=== PATIENT | female | born 1960 | race Caucasian/White ===

== ENCOUNTER 2018-08-26 00:10 | Inpatient (IN) | payer OTHER ==
[2018-08-25 15:05] LABS: INR 1.02
[2018-08-26] VITALS (18 sets, daily range): BP systolic 90–122; BP diastolic 56–82
[~2018-08-26] VITALS: Ht 154.9 cm; Wt 62.6 kg
[~2018-08-26 00:10] MED LIST: CYCL1DRO6 OP; FISH1CAP15 PO; HYDR12.556 PO; IBUP-1671 PO; PARO-243 PO; SIMV-49 PO; TELM1TAB19 PO; TRAM-420 PO
[2018-08-26] MEDS ORDERED: PROPOFOL EMUL(*) 10MG/ML 20 ML 20 ML ONE (07:22)
[2018-08-26] MEDS ORDERED: DEXAMETHASONE SOD 4 MG/ML VIAL ONE (07:22)
[2018-08-26] MEDS ORDERED: ONDANSETRON 4 MG/2 ML VIAL ONE (07:22)
[2018-08-26] MEDS ORDERED: METOCLOPRAMIDE 10 MG/2 ML SDV ONE (07:22)
[2018-08-26] MEDS ORDERED: LIDOCAINE MPF 1% 5 ML VIAL ONE (07:22)
[2018-08-26] MEDS ORDERED: fentaNYL CITR 100 MCG/2 ML AMP ONE ×3 (07:40→13:50)
[2018-08-26] MEDS ORDERED: ROPIVACAINE/EPI/CLONIDINE/KET 50 ML SYRINGE INJ ONE (07:45)
[2018-08-26] MEDS ORDERED: LIDOCAINE/SOD BICARB 8.4% SYR ID ONE (07:45)
[2018-08-26] MEDS ORDERED: TRANEXAMIC AC 1000 MG/10ML SDV 1,000 MG in DEXTROSE 5% 50 ML BAG 50 ML IV ONE (07:45)
[2018-08-26] MEDS ORDERED: CELECOXIB 200 MG CAP PO ONE (07:45)
[2018-08-26] MEDS ORDERED: NORMOSOL R SOLN(*) 1000 ML BAG 1,000 ML IV PRN (07:45)
[2018-08-26] MEDS ORDERED: ceFAZolin(*) 2GM/D5W 50ML 50 ML IVPB ONE (07:45)
[2018-08-26] MEDS ORDERED: MIDAZOLAM 2 MG/2 ML VIAL IVP PRN (07:45)
[2018-08-26] MEDS ORDERED: ACETAMINOPHEN 500 MG TAB PO ONE (07:45)
[2018-08-26] MEDS ORDERED: BACITRACIN 50000 UNIT/VIAL 100,000 UNIT in NS 0.9% 3000 ML IRRIGATION BAG 3,000 ML IR ONE (07:45)
[2018-08-26] MEDS ORDERED: PREGABALIN 150 MG CAPSULE PO ONE (07:45)
[2018-08-26] MEDS ORDERED: FAMOTIDINE 20 MG TAB PO ONE (07:45)
[2018-08-26] MEDS ORDERED: NS(*) 0.9% 250 ML BAG 250 ML ONE ×2 (10:59→18:34)
[2018-08-26] MEDS ORDERED: ePHEDrine 25 MG/5 ML DISP.SYR IVP ONE (11:15)
[2018-08-26] MEDS ORDERED: PHENYLEPHRINE 10 MG/1 ML VIAL ONE (12:09)
--- NOTE | 2018-08-26 13:49 | RADIOLOGY IMAGING REPORT ---
FACILITY: [facility] PATIENT NAME: Amirah Lopes : 1960 MR: [id number] V: [id number] EXAM DATE: ORDERING PHYSICIAN: DERRICK DANIELS TECHNOLOGIST: Location: [facility] - [place] Patient: Amirah Lopes : 1960 Visit/Account:[id number] Date of Sevice: 08/26/2018 EXAMINATION: AP left hip 08/26/2018 7:20 AM HISTORY: LEFT TOTAL HIP ARTHROPLASTY CHECK COMPARISON: None available FINDINGS: A single frontal image of the left hip is provided demonstrating indwelling EMILIA which appe ars to articulate appropriately in the projection obtained. IMPRESSION: Status post left EMILIA. Report Dictated By: Larry Dimas MD at 08/26/2018 1:31 PM Report E-Signed By: Larry Dimas MD at 08/26/2018 1:45 PM WSN:[email or web address]
--- NOTE | 2018-08-26 14:09 | OPERATIVE REPORT 1 ---
EVENT DATE: August 26, 2018 SURGEON: Betito Pichardo MD ANESTHESIOLOGIST: Krishna Salas MD ANESTHESIA: General LMA with spinal. DENTAL ASSOCIATE: Govind Corral PA-C PREOPERATIVE DIAGNOSIS Left hip osteoarthritis. POSTOPERATIVE DIAGNOSIS Left hip osteoarthritis. PROCEDURE PERFORMED Left hip total hip arthroplasty. FINDINGS The patient had arthritic changes associated with her hip but was amenable for total hip replacement. ESTIMATED BLOOD LOSS About 200 mL. DRAINS None. COMPLICATIONS None. TOURNIQUET TIME Not applicable. IMPLANTS USED Rosana size 48 cup with a size 6 extended offset stem with standard head and liner with ceramic head. SPECIMENS None. CONDITION Upon transfer to PACU was stable. INDICATIONS AND HISTORY This patient is a 58-year old female who presented to my clinic for evaluation of left hip pain and irritation going on for some time. She had tried all conservative management including injections and therapy and tried to live with it and, unfortunately, this failed to relieve her pain so she wanted to go ahead with total hip arthroplasty today, August 26, 2018. The risks and benefits were discussed with the patient and informed consent was obtained at the last clinic visit. We also talked very distinctly about that she may need revision and she is very young to have hip replacement so, therefore, we went over the risks and benefits associated with this. We also talked about neurovascular injury and dislocation or instability associated with it in addition to the other minor associated risks associated with surgery. DESCRIPTION OF PROCEDURE The patient was brought into the operating room. She and the procedure were both verified. She was given a spinal and then placed supine on the operating table, induced and intubated. She was then turned in the lateral decubitus position with the left hip towards the ceiling and then the left leg was prepped and draped in usual fashion and a time-out was observed, verifying the correct patient and procedure. The standard incision was made over the posterior lateral aspect of the hip. It was taken through the skin and subcutaneous tissue until I got down to the gluteal musculature and a little bit to the IT band. I was able to cut through this and then resect it back until I got to the posterior aspect of the hip. Once I was able to do this, I took down the piriformis and tagged it for later repair and then took down a little bit more of the short external rotators in order to gain access to the capsule. Once again, I accessed the capsule and made an high T cut associated with the capsule in order to make it amenable for further repair at the end of the case. I then dislocated the hip without any difficulty, put the retractors on both sides and then cut the femoral neck in accordance with the Rosana ML Taper system. I then was able to retract the femur anteriorly and then get out the cup. Once I was able to get good exposure of the cup, 360 degrees around, I was then able to cut the labrum without any difficulty, tag the capsule for labral repair and then commence reaming. We reamed all the way up to a 47 mm reamer, which had good bleeding cortical bone throughout, and then we were able to put in a 48 mm cluster-hole cup made by Rosana without any difficulty. Once we were able to put this in, it was down to the floor so I put in the two screw cap cups in there as well as the dome-hole plug. I then irrigated with copious amounts of saline, which I had throughout the case with pulsatile lavage and then put in the liner without any major issues. We did add a little bit of retroversion according to her normal anatomy secondarily due to the small cup size, but that is what she could accommodate. I then turned attention back to the femur, where I was able to then put a box cutting osteotome followed by a canal finding reamer and then a lateralizing reamer. We then subsequently broached from a [address] up to a 7.5. We put in a 7.5 with a standard neck and head. We then took intraoperative x-rays after this was reduced as it was fairly stable but we found we were too long on that side so, therefore, we changed it to a 6 with extended offset and then trialed that and that once again had pretty good stability except for with the leg only slightly flexed and internally rotated. I was then able to remove all those components and then put in the final extended offset 6 stem with a 32 ceramic head and then reduce it, put it through range of motion and it was once again very good with flexion and internal rotation with the leg at 90. Therefore, we then closed the capsule with a heavy Ethibond suture. This was then followed by two drill holes in the posterior aspects of the femur and repairing the piriformis through this area and then irrigated again with copious amounts of saline, added the pain cocktail and then closed the gluteal musculature with a #2 Quill. This was then followed by 2-0 Vicryl in the fatty layer and then a 2- 0 Stratafix in the skin layer followed by a 4-0 Monocryl. We then dressed it with Steri-Strips, gauze, 4 x 4's and a soft dressing and the patient was awakened, extubated and transferred to PACU in stable condition. HARRIET
[2018-08-26] MEDS ORDERED: ONDANSETRON 4 MG/2 ML VIAL IVP PRN (14:15)
[2018-08-26] MEDS ORDERED: MAGNESIUM CITRATE 300 ML BTL PO PRN (14:15)
[2018-08-26] MEDS ORDERED: diphenhydrAMINE 50 MG/ML VIAL IVP PRN (14:15)
[2018-08-26] MEDS ORDERED: MAGNESIUM HYDROXIDE* 30ML UDCP PO PRN (14:15)
[2018-08-26] MEDS ORDERED: HYDROmorphone HCL 2 MG/ML SDV IVP PRN (14:15)
[2018-08-26] MEDS ORDERED: FLUSH 10 ML SYR IVP PRN (14:15)
[2018-08-26] MEDS ORDERED: ZOLPIDEM TARTRATE 5 MG TAB PO PRN (14:15)
[2018-08-26] MEDS ORDERED: PROMETHAZINE 25 MG/ML 1 ML AMP IVP PRN (14:15)
[2018-08-26] MEDS ORDERED: BISACODYL 10 MG SUPP PR PRN (14:15)
[2018-08-26] MEDS ORDERED: LR 1000 ML BAG 1000 ML IV PRN (14:15)
[2018-08-26] MEDS ORDERED: diphenhydrAMINE 25 MG CAP PO PRN (14:15)
--- NOTE | 2018-08-26 14:55 | RADIOLOGY IMAGING REPORT ---
FACILITY: [facility] PATIENT NAME: Amirah Lopes : 1960 MR: [id number] V: [id number] EXAM DATE: ORDERING PHYSICIAN: DERRICK DANIELS TECHNOLOGIST: Location: [facility] - [place] Patient: Amirah Lopes : 1960 Visit/Account:[id number] Date of Sevice: 08/26/2018 PELVIS HISTORY: Post op Left EMILIA COMPARISON: Operative image from the operating room from today FINDINGS: Single view pelvis demonstrates anatomic alignment status post total hip arthroplasty. Expected soft tissue changes. IMPRESSION: Expected postoperative appearance status post left total hip arthroplasty. Report Dictated By: Victor Hugo Alvarez MD at 08/26/2018 2:50 PM Report E-Signed By: Victor Hugo Alvarez MD at 08/26/2018 2:51 PM WSN:[id number]
--- NOTE | 2018-08-26 15:54 | Hospitalist Consultation ---
History of Present Illness Requesting Physician Dr. Pichardo Reason for Consult Medical Management Chief Complaint s/p left hip replacement History of Present Illness She was admitted s/p left hip replacement. It is reported the surgery went well and without complication. History Problems: (1) Depression Status: Chronic (2) Hyperlipidemia Status: Chronic (3) Hypertension Status: Chronic Home Meds Reported Medications Fish Oil/Dha/Epa (FISH OIL 1,200 MG FISH OIL) 1 Each Capsule, 1 EACH PO QDAY, CAPSULE 08/19/18 Cyclosporine (RESTASIS) 1 Each Droperette, 1 EACH OP BID 08/19/18 Tramadol Hcl (TRAMADOL HCL) 50 Mg Tablet, 2 TAB PO TID, TAB 08/19/18 Hydrochlorothiazide (HYDROCHLOROTHIAZIDE) 12.5 Mg Capsule, 1 TAB PO QDAY, CAPSULE 08/19/18 Telmisartan/Hydrochlorothiazid (MICARDIS HCT 40-12.5 MG TABLET) 1 Each Tablet, 1 EACH PO QDAY 08/19/18 Simvastatin (SIMVASTATIN) 20 Mg Tablet, 20 MG PO HS, TAB 08/19/18 Paroxetine Hcl (PAXIL) 20 Mg Tablet, 15 MG PO QDAY, TAB 08/19/18 Discontinued Reported Medications Ibuprofen (MOTRIN IB) 200 Mg Tablet, 4 TAB PO QDAY 08/19/18 Allergies: Coded Allergies: No Known Drug Allergies (Unverified , 08/19/18) Patient History: FH: Alzheimers disease MOTHER FH: CAD (coronary artery disease) FATHER, , Age:43 FH: COPD (chronic obstructive pulmonary disease) MOTHER FH: brain aneurysm BROTHER OR SISTER FH: breast cancer MOTHER FH: lung cancer BROTHER OR SISTER (HX OF LUNG CANCER, CERTIFICATE REPORTED MRSA ), , Age:60 FH: myocardial infarction FATHER, , Age:43 FH: pulmonary embolism BROTHER OR SISTER (HX OF LUNG CANCER, CERTIFICATE REPORTED MRSA ), , Age:60 Fibromyalgia BROTHER OR SISTER MRSA infection BROTHER OR SISTER (HX OF LUNG CANCER, CERTIFICATE REPORTED MRSA ), , Age:60 Sjogren's disease BROTHER OR SISTER Hx Smoking: Yes (CURRENT SOME DAY ) Smoking Status: Former Smoker, Current: Some Days Smoker, Heavy Tobacco Smoker Caffeine Intake: Soda Caffeine/Cups Per Day: 2 CPD Hx Alcohol Use: Yes Hx Substance Use Disorder: No Social Drug Use: Never History of IV Drug Use: No Review of Systems All Systems Reviewed/Normal: Yes, Except as Noted Exam Vital Signs Vital Signs Date Time Temp Pulse Resp B/P (MAP) Pulse Ox O2 Delivery O2 Flow Rate FiO2 08/26/18 14:50 69 12 93 08/26/18 07:19 97.1 117/82 (94) Room Air General Appearance: Alert, Awake, No Acute Distress, Afebrile Neuro: No Gross deficits Cardiovascular: Regular Rate and Rhythm Respiratory: No Respiratory Distress, Clear to Auscultation Psych: Alert & Oriented X3, Appropriate Mood & Affect Assessment and Plan Problems: (1) Status post left hip replacement Status: Acute Assessment & Plan: Followed by Dr. Pichardo. She will be placed on Aspirin for DVT prophylaxis. (2) Hypertension Status: Chronic Assessment & Plan: She is on chronic treatment with Micardis/HCTZ. The hospital does not carry Telmisartan, so she will be placed on equivocal Losartan dose. This has been restarted with hold parameters. (3) Hyperlipidemia Status: Chronic Assessment & Plan: She is on chronic treatment with simvastatin. Continue. (4) Depression Status: Chronic Assessment & Plan: She is on chronic treatment with Paxil. Venous Thromboembolism Antithrombotics Is Pt On Any Antithrombotics?: No Problem Qualifiers (1) Hypertension: Hypertension type: essential hypertension Qualified Codes: I10 - Essential (primary) hypertension CAIO AKBAR QUALITY PROCESS ENGINEER Aug 26, 2018 15:54
--- NOTE | 2018-08-26 16:25 | NUR ---
Physical Therapy Impression PT eval complete. Pt completed bed mobility with verbal cues and SBA. CGA for side step to HOB with RW. Pt with good tolerance to supine LE ther-ex. Pt plans to d/c with OP PT services. Physical Therapy Goals 1: Pt to complete bed mobility with SBA 2: Pt to complete transfers with SBA and RW 3: Pt to ambulate 150' with SBA and RW. 4: Pt to asc/desc 4 stairs with railing and SBA. 5: Pt to demonstrate adherence to posterior hip precautions with mobility Patient's Goals
[2018-08-26] MEDS ORDERED: NICOTINE POLACRILEX 2 MG GUM PO PRN (16:40)
[2018-08-26] MEDS: ceFAZolin(*) 1 GM VIAL 1 GM in NS(*) 0.9% 100 ML ADDVANT BAG 100 ML IVPB SCH (18:42)
[2018-08-26] MEDS: cycloSPORINE 0.05% EMUL 1 DROP OU SCH (20:51)
[2018-08-26] MEDS ORDERED: SIMVASTATIN 20 MG TAB PO SCH (21:00)
[2018-08-26] MEDS ORDERED: ASPIRIN 325 MG TAB PO SCH (21:00)
[2018-08-27 03:27] VITALS: BP 109/60
[2018-08-27] MEDS: ceFAZolin(*) 1 GM VIAL 1 GM in NS(*) 0.9% 100 ML ADDVANT BAG 100 ML IVPB SCH ×2 (03:33→12:01)
[2018-08-27 07:01] VITALS: BP 106/56
[2018-08-27] MEDS ORDERED: OXYC-865 PO (07:34)
[2018-08-27 08:36] VITALS: BMI 26.1
[2018-08-27] MEDS: cycloSPORINE 0.05% EMUL 1 DROP OU SCH (08:50)
[2018-08-27] MEDS ORDERED: PAROXETINE HCL 10 MG TABLET PO SCH (09:00)
[2018-08-27] MEDS ORDERED: [UNRECOGNIZED DRUG - OTHER] PO SCH (09:00)
[2018-08-27] MEDS ORDERED: LOSARTAN POTASSIUM 50 MG TAB PO SCH (09:00)
--- NOTE | 2018-08-27 10:21 | NUR ---
Occupational Therapy Impression Pt alert and agreeable to OT tx. Reporting having just returned to bed from bathroom. Pt declined having OT return at later date to get OOB, OT education completed bedside. Pt recalling 3/3 posterior hip precautions. Reviewed handout re: ADLs and adherence to posterior hip precautions, demo of LB AE. Information provided for where to obtain LB dressing equipment and toilet riser. Pt with no further questions/concerns for OT at end of tx. Plans to have spouse assist with ADLs as needed. Discharge home when medically appropriate. Occupational Therapy Goals Patient's Goal
--- NOTE | 2018-08-27 10:32 | Hospitalist Progress Note ---
Subjective Progress Notes Subjective She has no complaints this morning. She had no acute events overnight. Patient Complains of: Cardiovascular: No: Chest Pain Respiratory: No: Shortness of Breath Physical Exam Vital Signs Date Time Temp Pulse Resp B/P (MAP) Pulse Ox O2 Delivery O2 Flow Rate FiO2 08/27/18 08:42 84 08/27/18 07:01 98.4 72 18 106/56 (73) Nasal Cannula 1.0 Intake and Output 08/27/18 07:00 Intake Total 1621 ml Balance 1621 ml Intake Oral 360 ml IV Total 1261 ml # Voids 2 General Appearance: Alert, Awake, No Acute Distress, Afebrile Neuro: No Gross deficits Cardiovascular: Regular Rate and Rhythm Respiratory: No Respiratory Distress, Clear to Auscultation GI: Soft and Non-Tender Psych: Alert & Oriented X3, Appropriate Mood & Affect Result Diagram: 08/27/1862508/27/18625 Assessment and Plan Problems: (1) Status post left hip replacement Status: Acute Assessment & Plan: Followed by Dr. Pichardo. She will be placed on Aspirin for DVT prophylaxis. (2) Hypertension Status: Chronic Assessment & Plan: She is on chronic treatment with Micardis/HCTZ. The hospital does not carry Telmisartan, so she will be placed on equivocal Losartan dose. This has been restarted with hold parameters. (3) Hyperlipidemia Status: Chronic Assessment & Plan: She is on chronic treatment with simvastatin. Continue. (4) Depression Status: Chronic Assessment & Plan: She is on chronic treatment with Paxil. Exam Sepsis Risk: No Definite Risk Problem Qualifiers (1) Hypertension: Hypertension type: essential hypertension Qualified Codes: I10 - Essential (primary) hypertension CAIO AKBAR WEB METHODS DEVELOPER Aug 27, 2018 10:32
[2018-08-27 10:54] VITALS: Ht 154.9 cm; Wt 62.6 kg
--- NOTE | 2018-08-27 11:36 | NUR ---
Physical Therapy Impression Pt has met all PT goals and from a mobility standpoint is ready for d/c. Pt did experience some light-headed feeling while completing stairs and was increased to 2 L/min in order to maintain SpO2 at or above 90%, as pt tends to hold her breath during this activity. Conveyed this to nursing in [facility]. Physical Therapy Goals 1: Pt to complete bed mobility with SBA 2: Pt to complete transfers with SBA and RW 3: Pt to ambulate 150' with SBA and RW. 4: Pt to asc/desc 4 stairs with railing and SBA. 5: Pt to demonstrate adherence to posterior hip precautions with mobility Patient's Goals
[2018-08-27 12:58] VITALS: BP 112/98
[2018-08-27 14:46] VITALS: BP 109/65
== END 2018-08-27 15:03 | disposition home or self-care (01) | DRG 470 ==
LOC: OR 00:10 → OBSVTOIN 14:50 → MED 14:50
PROVIDERS: ADMIT Orthopaedic Surgery; ATTEND Orthopaedic Surgery
PROC: 0SRB04A Replacement of Left Hip Joint with Ceramic on Polyethylene Synthetic Substitute, Uncemented, Open Approach (ICD-10-PCS; principal; 2018-08-26 11:09)
DX: M16.12 Unilateral primary osteoarthritis, left hip (principal); I10 Essential (primary) hypertension; F41.8 Other specified anxiety disorders; N80.9 Endometriosis, unspecified; F32.9 Major depressive disorder, single episode, unspecified; E78.5 Hyperlipidemia, unspecified; Z87.891 Personal history of nicotine dependence
CPT/HCPCS: 36415; 72170; 82310; 82374; 82435; 82565; 82947; 84132; 84295; 84520; 85014; 85018; 85610; 86850; 86900; 86901; 97161; 97165; C1713; C1776; J0690; J1100; J2001; J2250; J2370; J2405; J2704; J2765; J3010; J7050; J7060